=== PATIENT | female | born 1955 | race Two or more races ===

== ENCOUNTER 2022-07-26 13:17 | Emergency (ER) | payer OTHER ==
[~2022-07-26] VITALS: Ht 167.6 cm; Wt 52.0 kg
[2022-07-26 14:29] VITALS: BP 145/78
[2022-07-26] MEDS ORDERED: HYDROcodone-ACET 5/325MG TAB PO ONE (14:45)
[2022-07-26] MEDS ORDERED: OXY5T PO (15:53)
== END 2022-07-26 15:56 | disposition home or self-care (01) ==
LOC: ER 13:17
DX: S39.012A Strain of muscle, fascia and tendon of lower back, initial encounter (principal); S50.02XA Contusion of left elbow, initial encounter; W06.XXXA Fall from bed, initial encounter; Y93.89 Activity, other specified; Y92.89 Other specified places as the place of occurrence of the external cause; Y99.8 Other external cause status
CPT/HCPCS: 72131